=== PATIENT | female | born 1965 | race Asian ===

== ENCOUNTER 2020-04-06 08:34 | Emergency (ER) | payer OTHER ==
[~2020-04-06] VITALS: Ht 162.6 cm; Wt 65.3 kg
[2020-04-06 08:39] VITALS: BP 166/75
== END 2020-04-06 10:04 | disposition home or self-care (01) ==
LOC: ED 08:34
DX: T17.228A Food in pharynx causing other injury, initial encounter (principal); W45.8XXA Other foreign body or object entering through skin, initial encounter; Y93.89 Activity, other specified; Y92.89 Other specified places as the place of occurrence of the external cause; Y99.8 Other external cause status